=== PATIENT | male | born 1985 ===

== ENCOUNTER 2018-12-22 01:00 | Emergency (ER) | payer SELFPAY ==
[~2018-12-22] VITALS: Ht 170.2 cm; Wt 54.5 kg
[2018-12-22 01:02] VITALS: BP 147/93; PULSE 103; TEMP 97.1
== END 2018-12-22 01:13 | disposition home or self-care (01) ==
LOC: COL.ER 01:00
DX: F10.129 Alcohol abuse with intoxication, unspecified (principal)